=== PATIENT | female | born 1990 | race Caucasian/White ===

== ENCOUNTER 2017-04-13 10:07 | Day surgery (SDC) | payer BC ==
[2017-04-13] MEDS ORDERED: Bupivacaine 0.25% HCL 30 ML VIAL ONE (10:10)
[2017-04-13] MEDS ORDERED: Lidocaine 2% w/Epinephrine 1:200K 20 ML VIAL ONE (10:10)
[2017-04-13] MEDS ORDERED: CEFAZOLIN/Water 2 GM/20 ML SYRINGE ONE (10:35)
[2017-04-13] MEDS ORDERED: Fentanyl 250 MCG/5 ML VIAL ONE (10:49)
[2017-04-13 10:59] LABS: #Basophils 0.1 thou/uL (0.0-0.2); #Eosinphils 0.2 thou/uL (0.0-0.7); #Lymphocytes 2.1 thou/uL (1.20-3.40); #Monocytes 0.7 thou/uL (0.11-0.59); %Basophils 0.8 % (0.0-1.0); %Eosinophils 2.4 % (0.0-10.0); %Lymphocytes 26.2 % (21.0-51.0); %Monocytes 8.2 % (0.0-10.0); Hematocrit 35.2 % (36.0-47.0); Mean Platelet Volume 7.2 fL (7.4-10.4); Red Blood Cell (RBC) Count 3.65 mill/uL (4.20-5.40)
[2017-04-13] MEDS ORDERED: Midazolam HCl 2 mg/2 ml Vial ONE (11:20)
[2017-04-13] MEDS ORDERED: PHENYLEPHRINE-NS 100 MCG/ML 10 ML SYRINGE ONE (11:30)
[2017-04-13] MEDS ORDERED: Lidocaine 2% PF 10 ML AMP (For Epidural Use) ONE (11:30)
[2017-04-13] MEDS ORDERED: ePHEDrine/0.9% NaCl/PF SYRINGE 50 mg/10 ml ONE (11:30)
[2017-04-13] MEDS ORDERED: Succinylcholine Chloride 20 MG/ML 10 ml SYRINGE FS ONE (11:30)
[2017-04-13] MEDS ORDERED: Glycopyrrolate 0.2 MG/ML 5 ML SYRINGE ONE (11:30)
[2017-04-13] MEDS ORDERED: Ondansetron HCl/PF 4 MG/2 ML Vial ONE (11:30)
[2017-04-13] MEDS ORDERED: Propofol 200 MG/20 ML VIAL ONE ×2 (11:30)
[2017-04-13] MEDS ORDERED: Ketorolac Tromethamine 30 MG/ML VIAL ONE (11:30)
[2017-04-13 11:31] LABS: ALT (SGPT) 25 U/L (8-55); AST (SGOT) 21 U/L (5-34); Alkaline Phosphatase 64 U/L (40-150); Anion Gap 12 mmol/L (10-20); BUN (Urea Nitrogen) 8 mg/dL (7.0-18.7); Bilirubin, Total 0.4 mg/dL (0.2-1.2); Calc. Creatinine Clearance 0 mL/min (70-130); Calcium 9.8 mg/dL (7.8-10.44); Carbon Dioxide 23 mmol/L (22-29); Chloride 105 mmol/L (98-107); Estimated GFR-MDRD Greater than 90; Globulin 3.1 g/dL (2.4-3.5); Protein, Total 7.6 g/dL (6.0-8.3)
[2017-04-13] MEDS ORDERED: Meperidine HCl/PF 25 MG/ML VIAL ONE (12:49)
--- NOTE | 2017-04-14 11:33 | OP ---
DATE OF OPERATION: 04/13/2017 PREOPERATIVE DIAGNOSIS: Ruptured ectopic . POSTOPERATIVE DIAGNOSES: Ruptured ectopic , endometriosis. PROCEDURE: Laparoscopic right salpingectomy. ANESTHESIA: General endotracheal. ATTENDING SURGEON: Tanvi Mckeon M.D. PIN INSERTER SURGEON: None. ESTIMATED BLOOD LOSS: 10 mL. URINE OUTPUT: 150 mL of clear urine. INTRAVENOUS FLUIDS: One liter of crystalloid. COMPLICATIONS: None. DRAINS: None. PATHOLOGY: Right fallopian tube and ectopic . FINDINGS: Approximately 200 mL of hemoperitoneum upon entry into the abdomen, there was a ruptured and actively bleeding right fallopian tube with mass in situ. There were scattered superficial red implants on the pelvic peritoneum including the right uterosacral ligament, the left pelvic side wal l that were consistent with endometriosis. The uterus was normal appearing as well as the left fall opian tube and bilateral ovaries. The upper abdominal survey was normal as well. The appendix was normal appearing. OPERATIVE TECHNIQUE: The patient was taken to the operating room where general anesthesia was obtai kalia without difficulty. The patient was prepped and draped in sterile fashion in the dorsal lithoto my position. A speculum was placed in the vagina and the single tooth Hulka manipulator was placed in the uterus. The speculum was removed. The legs were placed in low lithotomy. Attention was tur kalia to the abdomen and mixture of 2% lidocaine with epinephrine and 0.25% Marcaine plain, half and h mcfp was infiltrated into the umbilicus and a 5 mm skin incision was made in the umbilicus. The Jolly ss needle was passed into the abdomen noting an opening pressure of 3 mmHg. Pneumoperitoneum was ob tained without difficulty. The Veress needle was removed. The 5 mm trocar and camera were passed i nto the abdomen confirming placement and steep Trendelenburg was obtained. Right and left lower donna drant ports were placed. The right lower quadrant was placed after infiltrating with the anesthetic mixture as above that was an 11 mm port. The left lower quadrant plate was placed after infiltrati ng with the mixture of anesthetic that was a 5 mm port under direct visualization. The right fallop babar tube was manipulated and the hemoperitoneum was suctioned for improved visualization. This was elevated with the grasper and the LigaSure was used to cauterize the mesosalpinx sequentially huggin g the fallopian tube mass and ensuring no occult damage to the ovary. This was sequentially cauteri zed and transected until the uterine cornua was met and the mass was completely resected clamping ac ross the fallopian tube, cauterizing and transecting and the mass was then freed from the patient. Additional fibers from the fimbriated end of the fallopian tube was then removed to ensure complete removal of any products of conception and this was performed with the LigaSure pulling traction with a blunt grasper. Excellent hemostasis was noted at the surgical site and the hemoperitoneum was en sured to completely be suctioned out of the patient including putting the patient in reverse Trendel enburg and copiously suctioning and irrigating this away. The bag was then placed through the 11 mm port and deployed open. This specimen was placed into the bag completely and the bag was then scott kenneth out of the abdomen easily using a Terese to stretch tension on the fascial incision. At that jhony e, hemostasis was once again noted and the Kale-Sylvester closure set was used to place a single st itch of 0 Vicryl to the 11 mm port under direct visualization. All instruments were then removed fr om the abdomen and the pneumoperitoneum was released. The skin was closed with 4-0 Monocryl in subc uticular fashion and Dermabond was applied. The manipulator was removed out of the vagina and hemos tasis was noted at the tenaculum site. The patient tolerated the procedure well. Sponge and needle counts were correct x2. The patient was taken to recovery room in stable condition. The patient r eceived Ancef 2 grams prior to the procedure.
== END 2017-04-13 14:41 | disposition home or self-care (01) ==
LOC: SDC 10:07
PROVIDERS: ATTEND Student in an Organized Health Care Education/Training Program
PROC: 0UT54ZZ Resection of Right Fallopian Tube, Percutaneous Endoscopic Approach (ICD-10-PCS; principal; 2017-04-13)
PROC: 10T24ZZ Resection of Products of Conception, Ectopic, Percutaneous Endoscopic Approach (ICD-10-PCS; principal; 2017-04-13)
DX: O00.101 Right tubal pregnancy without intrauterine pregnancy (principal); N80.0 Endometriosis of uterus; F17.210 Nicotine dependence, cigarettes, uncomplicated; Z98.890 Other specified postprocedural states
CPT/HCPCS: 36415; 80053; 84702; 85025; 86850; 86900; 86901; 88305; 96374; J1885; J2001; J2175; J2250; J2405; J2704; J3010; S0020

== ENCOUNTER 2017-07-03 18:54 | Emergency (ER) | payer BC ==
[2017-07-03 19:37] LABS: #Basophils 0.1 thou/uL (0.0-0.2); #Eosinphils 0.2 thou/uL (0.0-0.7); #Lymphocytes 2.7 thou/uL (1.20-3.40); #Monocytes 0.6 thou/uL (0.11-0.59); #Neutrophils 6.1 thou/uL (1.40-6.50); %Lymphocytes 27.7 % (21.0-51.0); %Neutrophils 63.2 % (42.0-75.0); Hemoglobin 12.4 g/dL (12.0-16.0); Mean Corpuscular HGB CONC 32.9 g/dL (32.0-36.0); Mean Corpuscular Hemoglobin 30.7 pg (27.0-31.0); Mean Corpuscular Volume 93.3 fl (81.0-99.0); Mean Platelet Volume 7.6 fL (7.4-10.4); Platelet Count 268 thou/uL (130-400); RBC Distribution Width 11.4 % (11.5-14.5); Red Blood Cell (RBC) Count 4.04 mill/uL (4.20-5.40); White Blood Cell (WBC) Count 9.7 thou/uL (4.8-10.8)
--- NOTE | 2017-07-03 21:30 | ULT ---
PELVIC ULTRASOUND: 07/03/17 Endovaginal ultrasound of the pelvis performed. INDICATION: Vaginal bleeding. There is an intrauterine . heart rate recorded at 165 beats per minute. A pole h as crown-rump length indicating an 8 week, 0 day gestation. Yolk sac is identified. The gestational s ac appears unremarkable. There is a hypoechoic area seen near the internal os which could potentially represent a subchorionic hemorrhage. This is measured at approximately 1 to 2 cm. The maternal ovaries are identified and floresita ear unremarkable. The right ovary is not well delineated and vascular flow to the right ovary cannot be confirmed with color doppler. Color doppler with spectral analysis does show flow to the left ovar y. IMPRESSION: Viable intrauterine with gestational age by crown-rump length indicating 8 week, 0 day gest ation. There is question of a subchorionic hemorrhage. Followup is recommended. POS: SUSAN
[2017-07-03 22:08] LABS: Bilirubin Negative (Negative); Blood, Urine Trace (Negative); Clarity CLEAR (Clear); Glucose, Urine (Dipstick) 100 mg/dL (Negative); Leukocyte Negative (Negative); Nitrite Negative (Negative); Protein, Urine (Dipstick) Negative (Neg-Trace); Specific Gravity, Urine 1.024 (1.002-1.036); Urobilinogen 0.2 mg/dL (0.2-1.0)
[2017-07-03 22:09] LABS: Bacteria/HPF None Seen HPF (None Seen); Hyaline Casts/LPF 0-3 HYALINE CAST LPF (0-3 Hyaline); Pathc Cast-AUWi Flag 0.67 (0-2.49); Squamous Epithelial 0-3 HPF (0-3); WBC/HPF 0-3 HPF (0-3)
== END 2017-07-03 22:51 | disposition home or self-care (01) ==
LOC: ERS 18:54
DX: O20.0 Threatened abortion (principal); O99.331 Smoking (tobacco) complicating pregnancy, first trimester; F17.210 Nicotine dependence, cigarettes, uncomplicated; Z79.899 Other long term (current) drug therapy; Z3A.01 Less than 8 weeks gestation of pregnancy
CPT/HCPCS: 36415; 36416; 76856; 81003; 81015; 84702; 85025; 86900; 86901; 87086; 88305; 99406

== ENCOUNTER 2019-01-25 05:30 | Inpatient (IN) | payer OTHER ==
[2019-01-25 11:42] VITALS: BMI 29.9
[2019-01-25] MEDS ORDERED: Lactated Ringer's 1,000 ML IV SCH (11:46)
[2019-01-25] MEDS ORDERED: NS w/ Oxytocin 10 units 500 ML IV SCH (11:46)
[2019-01-25] MEDS ORDERED: Carboprost 250 MCG/ML AMP IM PRN (11:46)
[2019-01-25] MEDS ORDERED: Acetaminophen 500 MG TAB PO PRN (11:46)
[2019-01-25] MEDS ORDERED: Ondansetron PF 4 MG/2 ML Vial IVP PRN ×2 (11:46→16:27)
[2019-01-25] MEDS ORDERED: Methylergonovine 0.2 MG/ML VIAL IM PRN (11:46)
[2019-01-25] MEDS ORDERED: Promethazine HCl 25 MG/ML VIAL IM PRN (11:46)
[2019-01-25] MEDS ORDERED: hydrALAZINE 20 MG/ML VIAL SLOW IVP PRN ×2 (11:46→16:27)
[2019-01-25] MEDS ORDERED: Butorphanol Tartrate 1 MG/ML VIAL SLOW IVP PRN (11:46)
[2019-01-25] MEDS ORDERED: Misoprostol 200 MCG TAB PR PRN (11:46)
[2019-01-25] MEDS ORDERED: Diphenoxylate HCl/Atropine Tablet PO PRN (11:46)
[2019-01-25] MEDS ORDERED: Lidocaine 1% (PF) 30 ML VIAL SC PRN (11:46)
[2019-01-25] MEDS ORDERED: HYDROcodone/Acetaminophen 5/325 mg Tablet PO PRN ×3 (11:46→16:27)
[2019-01-25] MEDS ORDERED: Ibuprofen 800 MG TAB PO PRN (11:46)
[2019-01-25] MEDS ORDERED: NS / Oxytocin 40 units/1000ml 1,000 ML IV PRN (11:46)
--- NOTE | 2019-01-25 12:07 | PDOC.LDHP ---
Labor and Delivery H&P Chief complaint: scheduled induction HPI: 28yo A1 here for elective IOL, pt is a tolac, prior CS x 1 first for mono-di twins with IUGR, second . Some ctx. No VB LOF. Good FM Current gestational age (weeks): 39 Due date: 01/27/19 Dating criteria: second trimester ultrasound Grav: 4 Para: 3 OB History Details: Prior CS x 1 first for mono-di twins, IUGR, 32w Current complications: none Abnormal US findings: No Past Medical History: ADHD Current medications: pre- vitamins Previous surgical history: low tranverse CS, other (left salpingectomy) Allergies/Adverse Reactions: Allergies Allergy/AdvReac Type Severity Reaction Status Date / Time No Known Drug Allergies Allergy Verified 01/25/19 11:39 Social history: none - Physical Exam Vital signs reviewed and normal: yes General: NAD Heart: RRR Lungs: CTAB Abdomen: gravid Extremeties: no edema FHT: category 1 Donalds contractions every: 7min - Vaginal Exam cm dilated: 5 Effacement: 90% Station: -1 - OB Labs RH: positive Antibody Screen: negative HIV: negative RPR: negative HEPSAg: negative 1 hour GCT: negative GBS: negative Urine drug screen: positive Rubella: immune - Assessment L&D Assessment: elective induction at term - Plan Plan: admit to L&D, labor augmentation if indicated, informed consent obtained, anesthesia consult for pain management -: Pt understands risks of TOLAC including uterine rupture <1% with doubling of that risk if pitocin is used. Pt understands and wishes to proceed.
[2019-01-25 12:27] LABS: Hemoglobin 10.6 g/dL (12.0-16.0); Mean Corpuscular HGB CONC 32.7 g/dL (32.0-36.0); Mean Corpuscular Volume 79.6 fL (78.0-98.0); Mean Platelet Volume 8.9 fL (7.4-10.4); Platelet Count 290 thou/uL (130-400); RBC Distribution Width 14.7 % (11.5-14.5); Red Blood Cell (RBC) Count 4.09 mill/uL (4.20-5.40); White Blood Cell (WBC) Count 7.9 thou/uL (4.8-10.8)
[2019-01-25 13:06] LABS: HBSAg Index 0.34 S/CO (0-0.99); Hep B Surf Ag Non-Reactive S/CO (NonReactive); Syphilis Antibody Nonreactive (Nonreactive); Syphilis Antibody Index 0.04 S/CO (<1.00 Non-Reactive)
[2019-01-25] MEDS ORDERED: Fentanyl 4 mcg/Bup 0.1% Cadd 100 ML ONE (13:44)
--- NOTE | 2019-01-25 15:59 | PDOC.OPDEL ---
OB Operative/Delivery Note Delivery Dr/Surgeon: Linda Assist: n/a Pre-Delivery Diagnosis: elective induction Procedure/Post Delivery Dx: vaginal delivery after CS Weeks gestation: 39 Anesthesia: local - Findings A Sex: female - 1 min: 9 - 5 min: 9 - Additional Findings/Plan Placenta delivered: spontaneous Repaired Obstetrical Laceration: 2nd degree (repaired with 2-0 vicryl) Estimated blood loss: 75cc Compilations/Other Findings: body cord x 1 Post delivery plan: routine recovery
[2019-01-25] MEDS ORDERED: Lanolin Ointment 7 GM TUBE TOP PRN (16:27)
[2019-01-25] MEDS ORDERED: diphenhydrAMINE 25 MG CAP PO PRN (16:27)
[2019-01-25] MEDS ORDERED: NS / Oxytocin 40 units/1000ml 1,000 ML IV SCH (16:27)
[2019-01-25] MEDS ORDERED: Bisacodyl 10 MG SUPP PR PRN (16:27)
[2019-01-25] MEDS ORDERED: Adacel (T-DAP) 0.5 ML SYRINGE IM ONE (16:27)
[2019-01-25] MEDS ORDERED: Benzocaine-Menthol 82.5 ML CAN TOP PRN (16:27)
[2019-01-25] MEDS ORDERED: Milk Of Magnesia 30 ML UDCUP PO PRN (16:27)
[2019-01-25] MEDS ORDERED: Preparation H Ointment 28 GM TUBE PR PRN (16:27)
[2019-01-25] MEDS: Ferrous Sulfate 325 MG TAB PO SCH (21:05)
[2019-01-25] MEDS: Docusate Calcium (SURFAK) 240 MG CAP PO SCH (21:30)
[2019-01-25] MEDS: Ibuprofen 800 MG TAB PO SCH (22:23)
[2019-01-26] MEDS: Ibuprofen 800 MG TAB PO SCH ×2 (05:41→13:51)
[2019-01-26] MEDS: Ferrous Sulfate 325 MG TAB PO SCH ×2 (09:00→16:18)
[2019-01-26] MEDS ORDERED: Prenatal Vitamin 1 TAB PO SCH (09:00)
[2019-01-26] MEDS: Docusate Calcium (SURFAK) 240 MG CAP PO SCH (09:43)
[2019-01-26 16:11] VITALS: BP 149/79; TEMP 98.1
--- NOTE | 2019-01-26 16:43 | PDOC.PP ---
Post Progress Note Post Day #: 1 PO intake tolerated: yes Flatus: yes Ambulation: yes Vital Signs (12 hours) Temp Pulse Resp BP BP Pulse Ox 01/26/19 15:16 98.1 F 75 12 149/79 H 97 01/26/19 12:02 98.3 F 73 20 134/76 01/26/19 08:40 97 01/26/19 08:22 98.2 F 63 20 127/73 97 01/26/19 05:40 98.8 F 66 18 126/59 L Weight Weight 180 lb - Physical Examination General: NAD Cardiovascular: RRR Respiratory: non-labored breathing Abdominal: no distention, appropriately TTP Fundus firm & at: umb Extremities: negative homans (B) Skin: no rash Neurological: no gross focal deficits Psychiatric: normal affect Result Diagrams: 01/25/19 12:16 Additional Labs: Post Labs Blood Type O POSITIVE 01/25/19 12:16 Hep Bs Antigen Non-Reactive S/CO (NonReactive) 01/25/19 12:16 - Assessment/Plan 28yo s/p PPD1 VSSAF Doing well lochia appropriate, pain controlled. Rh pos RImm DC home FU 6wk
== END 2019-01-26 17:20 | disposition home or self-care (01) | DRG 807 ==
LOC: L&D 11:12 → 3SW 21:12
PROVIDERS: ADMIT Student in an Organized Health Care Education/Training Program; ATTEND Student in an Organized Health Care Education/Training Program
PROC: 10E0XZZ Delivery of Products of Conception, External Approach (ICD-10-PCS; principal; 2019-01-25)
PROC: 0KQM0ZZ Repair Perineum Muscle, Open Approach (ICD-10-PCS; 2019-01-25)
PROC: 3E033VJ Introduction of Other Hormone into Peripheral Vein, Percutaneous Approach (ICD-10-PCS; 2019-01-25)
PROC: 10907ZC Drainage of Amniotic Fluid, Therapeutic from Products of Conception, Via Natural or Artificial Opening (ICD-10-PCS; 2019-01-25)
DX: O34.211 Maternal care for low transverse scar from previous cesarean delivery (principal); Z37.0 Single live birth; O62.3 Precipitate labor; O69.81X0 Labor and delivery complicated by cord around neck, without compression, not applicable or unspecified; O70.1 Second degree perineal laceration during delivery; Z3A.39 39 weeks gestation of pregnancy
CPT/HCPCS: 36415; 85027; 86780; 86850; 86900; 86901; 87340; 90715; J2001

== ENCOUNTER 2019-07-11 06:15 | Emergency (ER) | payer OTHER, SELFPAY ==
[2019-07-11] MEDS ORDERED: Famotidine 20 MG TAB ONE (06:45)
[2019-07-11] MEDS ORDERED: Ondansetron ODT 8 MG TAB ONE (06:45)
[2019-07-11] MEDS ORDERED: predniSONE 20 MG TAB ONE (06:45)
[2019-07-11] MEDS ORDERED: diphenhydrAMINE 25 MG CAP ONE (06:45)
== END 2019-07-11 07:01 | disposition home or self-care (01) ==
LOC: ERS 06:15
DX: L50.9 Urticaria, unspecified (principal); F17.210 Nicotine dependence, cigarettes, uncomplicated
CPT/HCPCS: 99283; J7512; Q0163

== ENCOUNTER 2019-07-13 15:56 | Observation (INO) | payer OTHER ==
[2019-07-13 16:52] LABS: Bilirubin 1+ (Negative); Blood, Urine Negative (Negative); Clarity Clear (Clear); Glucose, Urine (Dipstick) Normal (Negative); Leukocyte Negative Leu/uL (Negative); Nitrite Negative (Negative); Protein, Urine (Dipstick) Negative (Neg-Trace); Urobilinogen Normal mg/dL (Less than 2)
[2019-07-13 17:01] LABS: #Lymphocytes 1.7 thou/uL (1.20-3.40); #Monocytes 0.6 thou/uL (0.11-0.59); #Neutrophils 7.2 thou/uL (1.40-6.50); %Basophils 0.4 % (0.0-1.0); %Eosinophils 0.1 % (0.0-10.0); %Lymphocytes 18.1 % (21.0-51.0); %Monocytes 6.3 % (0.0-10.0); Hemoglobin 13.4 g/dL (12.0-16.0); Mean Corpuscular HGB CONC 30.8 g/dL (32.0-36.0); Mean Platelet Volume 7.8 fL (7.4-10.4); Platelet Count 328 thou/uL (130-400); RBC Distribution Width 12.8 % (11.5-14.5); Red Blood Cell (RBC) Count 4.76 mill/uL (4.20-5.40); White Blood Cell (WBC) Count 9.5 thou/uL (4.8-10.8)
[2019-07-13 17:14] LABS: Pregnancy Test - Urine (BHCG) Negative (Negative); Pregu Control Background? CLEAR/WHITE (CLR/WHITE); Pregu Control Bar Appear? YES (CONTROL BAR); Specific Gravity 1.008 (1.002-1.036)
[2019-07-13 17:22] LABS: ALT (SGPT) 1507 U/L (8-55); AST (SGOT) 629 U/L (5-34); Albumin 4.5 g/dL (3.5-5.0); Alkaline Phosphatase 217 U/L (40-110); Anion Gap 11 mmol/L (10-20); BUN (Urea Nitrogen) 8 mg/dL (7.0-18.7); Bilirubin, Total 4.1 mg/dL (0.2-1.2); Calc. Creatinine Clearance 0 mL/min (70-130); Calcium 9.4 mg/dL (7.8-10.44); Carbon Dioxide 27 mmol/L (22-29); Chloride 104 mmol/L (98-107); Estimated GFR-MDRD Greater than 90; Globulin 2.9 g/dL (2.4-3.5); Glucose 123 mg/dL (70-105); Lipase 45 U/L (8-78); Potassium 4.1 mmol/L (3.5-5.1); Protein, Total 7.4 g/dL (6.0-8.3); Sodium 138 mmol/L (136-145)
--- NOTE | 2019-07-13 17:36 | ULT ---
RIGHT UPPER QUADRANT ULTRASOUND: 07/13/19 HISTORY: Right upper quadrant pain. Real time imaging of the right upper quadrant shows some small faintly shadowing echogenic foci withi n the gallbladder lumen compatible with small stones. The technologist described a negative ultrasoun d Mckinney's sign. The common duct is slightly dilated. Measures in the 8 to 9 mm range. A ductal calcu marlene is not definitely appreciated. The visualized liver parenchymal shows no focal findings. The panc reas and right kidney are normal in appearance. IMPRESSION: Multiple cholelithiasis with a slight dilated common bile duct. POS: RICHARD
[2019-07-13] MEDS ORDERED: Morphine 4 MG/ML VIAL ONE (19:06)
[2019-07-13] MEDS: Sodium Chloride 0.9% 1,000 ML IV SCH (19:59)
[2019-07-13 20:04] VITALS: BMI 29.9
[2019-07-14] MEDS: Sodium Chloride 0.9% 1,000 ML IV SCH (03:11)
[2019-07-14] MEDS ORDERED: Morphine 4 MG/ML VIAL SLOW IVP PRN ×2 (04:58→12:10)
[2019-07-14] MEDS: Morphine 2 MG/ML SYRINGE SLOW IVP PRN ×2 (05:04→15:53)
[2019-07-14 05:24] LABS: #Basophils 0.1 thou/uL (0.0-0.2); #Eosinphils 0.1 thou/uL (0.0-0.7); #Lymphocytes 3.2 thou/uL (1.20-3.40); #Monocytes 0.7 thou/uL (0.11-0.59); #Neutrophils 2.8 thou/uL (1.40-6.50); %Basophils 1.1 % (0.0-1.0); %Eosinophils 1.9 % (0.0-10.0); %Lymphocytes 46.4 % (21.0-51.0); %Monocytes 9.7 % (0.0-10.0); %Neutrophils 40.9 % (42.0-75.0); Hemoglobin 11.8 g/dL (12.0-16.0); Mean Corpuscular HGB CONC 32.3 g/dL (32.0-36.0); Mean Corpuscular Hemoglobin 29.2 pg (27.0-31.0); Mean Corpuscular Volume 90.7 fL (78.0-98.0); Platelet Count 286 thou/uL (130-400); RBC Distribution Width 12.9 % (11.5-14.5); Red Blood Cell (RBC) Count 4.05 mill/uL (4.20-5.40); White Blood Cell (WBC) Count 6.9 thou/uL (4.8-10.8)
[2019-07-14 06:40] LABS: Albumin 3.6 g/dL (3.5-5.0)
[2019-07-14 06:41] LABS: Chloride 109 mmol/L (98-107); Potassium 3.4 mmol/L (3.5-5.1); Sodium 139 mmol/L (136-145)
[2019-07-14 06:42] LABS: Globulin 2.3 g/dL (2.4-3.5); Glucose 98 mg/dL (70-105); Protein, Total 5.9 g/dL (6.0-8.3)
[2019-07-14 06:44] LABS: Anion Gap 8 mmol/L (10-20); Bilirubin, Total 2.6 mg/dL (0.2-1.2); Carbon Dioxide 25 mmol/L (22-29)
[2019-07-14 06:45] LABS: Alkaline Phosphatase 191 U/L (40-110); Calc. Creatinine Clearance 150 mL/min (70-130); Estimated GFR-MDRD Greater than 90
[2019-07-14 06:46] LABS: BUN (Urea Nitrogen) 7 mg/dL (7.0-18.7)
[2019-07-14 06:47] LABS: AST (SGOT) 363 U/L (5-34)
[2019-07-14 06:48] LABS: ALT (SGPT) 1119 U/L (8-55); Lipase 47 U/L (8-78)
[2019-07-14 07:00] LABS: Calcium 7.9 mg/dL (7.8-10.44)
[2019-07-14] MEDS ORDERED: CEFAZOLIN 2 GM in Premix Bag 1 BAG IVPB SCH (08:15)
--- NOTE | 2019-07-14 09:15 | HP ---
CHIEF COMPLAINT: Mid epigastric pain. HISTORY OF PRESENT ILLNESS: The patient is a 29-year-old female with a 1-year history of intermittent epigastric pain radiating to back. Over the last month, it has become extremely frequent, almost every other day and much worse over the last 24 hours. This was associated with nausea and vomiting, dark urine. She has been n.p.o. since midnight. PAST MEDICAL HISTORY: Otherwise, healthy. PAST SURGICAL HISTORY: She has had an ectopic and a section. MEDICATIONS: No medications. ALLERGIES: NO KNOWN DRUG ALLERGIES. SOCIAL HISTORY: She is . 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 Smokes 1 pack every 3 days. Rare alcohol. FAMILY HISTORY: Gallstones. PHYSICAL EXAMINATION: VITAL SIGNS: Temperature 98, pulse 59, and blood pressure 104/68. GENERAL: She is awake, alert. She says her pain is completely gone now. She is in no apparent distress. HEENT: There is some mild jaundice. LUNGS: Clear. HEART: Regular rate and rhythm. ABDOMEN: Soft. Very minimal tenderness in the midepigastrium. EXTREMITIES: Unremarkable. LABORATORY DATA: Her white count is 6.9, H and H of 11 and 36, and platelet count 286. Electrolytes; her bilirubin was 4, now it is down to 2.6; AST down from 600 to 300; ALT down from 1500 to 1100; and alkaline phosphatase down from 217 to 191. Lipase is normal. IMAGING DATA: Her ultrasound showed multiple cholelithiasis with an enlarged common bile duct at about 8 to 9 mm. ASSESSMENT: Severe biliary colic with possible choledocholithiasis, possibly has passed a stone. PLAN: I have discussed options of ERCPs first, then laparoscopic cholecystectomy versus laparoscopic cholecystectomy with ERCP. We will plan on doing both procedures, but I think we are leaning toward laparoscopic cholecystectomy with cholangiogram. If positive, then ERCP. She understands the risk and benefits to include bleeding, infection, injury to bowel, injury to bile duct, need to open and gives informed consent. Job ID: [id number]
[2019-07-14] MEDS ORDERED: ePHEDrine/0.9% NaCl/PF SYRINGE 50 mg/10 ml ONE (09:22)
[2019-07-14] MEDS ORDERED: Glycopyrrolate 0.2 MG/ML 5 ML SYRINGE ONE ×2 (09:22)
[2019-07-14] MEDS ORDERED: Ondansetron PF 4 MG/2 ML Vial ONE (09:22)
[2019-07-14] MEDS ORDERED: PROPOFOL 200 MG/20 ML VIAL ONE (09:22)
[2019-07-14] MEDS ORDERED: Rocuronium Bromide 10 MG/ML (10ML VIAL) ONE (09:22)
[2019-07-14] MEDS ORDERED: Dexamethasone 20 MG/5 ML VIAL ONE (09:22)
[2019-07-14] MEDS ORDERED: Lidocaine 1% PF 5 ML VIAL ONE (09:22)
[2019-07-14] MEDS ORDERED: Midazolam HCl 2 mg/2 ml Vial ONE (09:56)
[2019-07-14] MEDS ORDERED: Fentanyl 100 MCG/2 ML VIAL ONE ×4 (10:47→13:28)
[2019-07-14] MEDS ORDERED: HYDROmorphone 0.5 MG/0.5 ML SYRINGE ONE (10:47)
[2019-07-14] MEDS ORDERED: Lidocaine 1% w/Epinephrine 1:100K 20 ML VIAL ONE (10:52)
[2019-07-14] MEDS ORDERED: Bupivacaine 0.25% HCL 30 ML VIAL ONE (10:52)
[2019-07-14] MEDS ORDERED: Iothalamate Meglumine 60% 50 ML VIAL FS ONE ×2 (10:52→14:06)
[2019-07-14] MEDS ORDERED: Ondansetron PF 4 MG/2 ML Vial IVP PRN (12:10)
[2019-07-14] MEDS ORDERED: hydrALAZINE 20 MG/ML VIAL SLOW IVP PRN (12:10)
[2019-07-14] MEDS ORDERED: Dextrose 5% in Water 1,000 ML IV PRN (12:10)
[2019-07-14] MEDS ORDERED: Promethazine HCl 25 MG/ML VIAL IM PRN (12:10)
[2019-07-14] MEDS ORDERED: Calcium Carbonate 500 MG ChewTAB PO PRN (12:10)
[2019-07-14] MEDS ORDERED: Morphine 2 MG/ML SYRINGE SLOW IVP PRN (12:10)
[2019-07-14] MEDS ORDERED: Dextrose 50% Abboject 50 ML SYRINGE SLOW IVP PRN (12:10)
[2019-07-14] MEDS ORDERED: HYDROcodone/Acetaminophen 10/325 mg Tablet PO PRN ×2 (12:10)
[2019-07-14] MEDS ORDERED: Mag-Al 1200 mg/1200 mg/30 ML UDCUP PO PRN (12:10)
[2019-07-14] MEDS ORDERED: D5 1/2 NS w/20 mEq KCL 1,000 ML IV SCH (12:15)
--- NOTE | 2019-07-14 12:24 | RAD ---
OPERATIVE CHOLANGIOGRAM: Date: 07/14/2019 HISTORY: Intraoperative film. FINDINGS: Single film shows filling of a nondilated common bile duct. Ampullar region is not well visualized. T here is emptying into the duodenum. IMPRESSION: Essentially unremarkable operative cholangiogram. The ampullary region of the duct is not well visual ized. POS: SUSAN
[2019-07-14] MEDS ORDERED: Promethazine HCl 25 MG/ML VIAL ONE (13:30)
--- NOTE | 2019-07-14 13:56 | RAD ---
ERCP: DATE: 07/14/2019 HISTORY: Gallstones with a slightly dilated common bile duct noted. FINDINGS: A series of films show filling of a nondilated common bile duct. There does appear to be a filling de fect seen on two of these images in the distal common duct. This could be an air bubble versus a smal l stone. IMPRESSION: Questionable air bubble versus small stone. POS: SUSAN
[2019-07-14] MEDS ORDERED: Indomethacin 50 MG SUPP ONE (14:06)
--- NOTE | 2019-07-14 14:45 | OP ---
DATE OF PROCEDURE: 07/14/2019 PREOPERATIVE DIAGNOSIS: Acute cholecystitis with elevated liver function. PROCEDURE PERFORMED: Laparoscopic cholecystectomy with intraoperative cholangiogram. INDICATIONS: A 29-year-old female, who has been having episodic right upper quadrant pain, much worse over the last couple of days. She has had dark urine. Ultrasound shows dilated common duct. Her LFTs are elevated. FINDINGS: Single stone in the common bile duct. There was edema of the gallbladder consistent with acute cholecystitis. DESCRIPTION OF PROCEDURE: After informed consent was obtained, the patient was taken to the operating room, given general endotracheal anesthesia, placed in supine position. Abdomen was prepped and draped in usual fashion. Local anesthesia was infiltrated subcutaneously and deep and a subumbilical incision was performed. Subcu divided sharply. The fascia was grasped and 2 stay sutures were placed in each side of midline. Midline incised. Digital palpation revealed no local adhesions. A blunt 12-mm trocar inserted. Pneumoperitoneum was created to a pressure of 15 mmHg. A 0-degree laparoscope was inserted under direct vision. Three 5-mm ports were placed subcostally. The gallbladder was grasped and advanced superiorly. Peritoneum lysed distally to reveal a dilated cystic duct and cystic artery. A clip was placed at the base of the gallbladder and incision was made in the cystic duct. An Arrow cholangiocatheter was inserted. Intraoperative cholangiogram showed free flow in the duodenum. Good intrahepatic ducts, but there was a filling defect in the distal common bile duct. The cystic duct had to be doubly ligated with endo-loops due to its size. Then, the cystic artery triply ligated with hemoclips and divided. The gallbladder removed from its fossa utilizing electrocautery, removed from the abdomen in an endosac. Hemostasis was assured. Trocars and retractors were removed. The fascia was closed with interrupted 0 Vicryl suture. The skin was closed with interrupted 4-0 Rapide. Dermabond applied. The patient tolerated the procedure well, transferred to Recovery in good condition. Sponge and needle count verified correct x2. Job ID: [id number]
--- NOTE | 2019-07-14 15:27 | OP ---
DATE OF PROCEDURE: 07/14/2019 PROCEDURES PERFORMED: 1. Endoscopic retrograde cholangiopancreatography with sphincterotomy. 2. Removal of common bile duct stone. PREPROCEDURE DIAGNOSIS: Abnormal intraoperative cholangiogram at laparoscopic cholecystectomy just prior to this procedure. ANESTHESIA: General endotracheal anesthesia. Indocin suppositories were given prophylactically for pancreatitis. POSTPROCEDURE DIAGNOSIS: 5 mm to 7 mm yellow stone was removed from the common bile duct a cholangiogram was clear after this. RECOMMENDATIONS: Advance diet as tolerated. If has no pain and tolerating diet, can go home this evening after 5. PROCEDURE IN DETAIL: After the patient was informed of the risks, benefits, and possible complications of endoscopy including perforation, bleeding, reaction to medication, aspiration, pancreatitis, informed consent was obtained. The patient was brought to endoscopy suite from the OR, where she had a positive intraoperative cholangiogram. She was transferred to fluoroscopy table. Once she was properly positioned, a bite block was placed inside the orifice. The endoscope was advanced into the esophagus, stomach, and second and third portions of duodenum. The ampulla was brought into view. Clear bile was noted to be emanating from it. Free cannulation was obtained with assistance of a guidewire. Cholangiogram revealed filling defect in the distal 3rd of the common bile duct. A 9 mm balloon was used then to advance above the stone. This was after sphincterotomy was performed over a guidewire. The balloon was inflated and the duct was swept, removing the stone. Occlusion cholangiogram x2 after this showed no further filling defects. The duct was swept 2 more times and no further stone or debris coming out of the duct and there was spontaneous drainage of contrast noted both visually and fluoroscopically. The stomach was then desufflated. The scope was removed. The patient was extubated, brought to recovery room in stable condition. Job ID: [id number]
--- NOTE | 2019-07-14 15:34 | CON ---
DATE OF CONSULTATION: 07/14/2019 HISTORY OF PRESENT ILLNESS: Ms. Johns is a 29-year-old female who I was asked to see with regard to possible choledocholithiasis. She has had about 4 months of intermittent right upper quadrant and epigastric pain. It is somewhat worse in the morning and sometimes after she eats, occasionally it is radiating around to her side back. This started shortly after delivery of her last child in January. In the last month or so, it has gotten much worse. She presented to the emergency room last night with severe epigastric pain and was noted to have gallstones and mildly dilated bile duct and elevated LFTs. She is going to Dr. West for cholecystectomy today and possible ERCP. PAST MEDICAL HISTORY: She has had ectopic with laparoscopy for that. She has had a . She also has had spontaneous vaginal delivery. Otherwise, she has been healthy. MEDICATIONS: None. ALLERGIES: NO KNOWN DRUG ALLERGIES. SOCIAL HISTORY: She is . 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 Smokes about a pack per day every 3-4 days. Rarely drinks alcohol. FAMILY HISTORY: Notable for multiple members with gallstones. She has no family history of colorectal cancer or liver disease. MEDICATIONS: Here: 1. Pepcid. 2. Lovenox. 3. Cefoxitin. 4. Hydrochlorothiazide. 5. Hydrocodone p.r.n. 6. Toradol p.r.n. 7. Morphine p.r.n. 8. D5 half-normal saline with KCl 20 mEq at 80 an hour. PHYSICAL EXAMINATION: VITAL SIGNS: Temperature 98, pulse 59, respirations 18, blood pressure of 104/64. GENERAL: The patient is in bed. Her is at the bedside. She is no distress. It is difficult for me to tell she is icteric or not in this lighting. NECK: Supple without nodes. LUNGS: Clear. HEART: Regular with no extra murmurs. ABDOMEN: Soft. Mild tenderness in the right upper quadrant. There is no rebound. There is no guarding. EXTREMITIES: No clubbing, cyanosis, or edema. LABORATORY STUDIES: White count 6.9, hemoglobin 11.8, platelet count 286. Comprehensive metabolic profile notable for sodium 139, BUN and creatinine 7 and 0.7. Bilirubin was 4.1 last night and 2.6 today, AST 629 to 362, ALT 1507 to 1119, alkaline phosphatase 172 to 191. Ultrasound showed multiple stones in the gallbladder and some dilation of the common bile duct. ASSESSMENT: 1. Symptomatic cholelithiasis with intermittent bouts of biliary colic. 2. Likely choledocholithiasis. PLAN: We will talk to Dr. West with regard to whether he wants to do a laparoscopic cholecystectomy and IOC first or having me proceed with ERCP 1st. It is likely she has retained stone. Timing will depend on what the OR schedule is and what Dr. West's preference is. Risks, benefits, and possible complications of the ERCP including perforation, bleeding, reaction to medication, and aspiration and pancreatitis were discussed the patient and her family and she wished to proceed. Job ID: [id number]
[2019-07-14] MEDS ORDERED: cefOXitin Sodium/Dextrose,Iso 2 GM in Premix Bag 1 BAG IVPB SCH (17:00)
[2019-07-14] MEDS ORDERED: Ketorolac Tromethamine 30 MG/ML VIAL IVP SCH (18:00)
[2019-07-14 20:06] VITALS: BP 114/72; TEMP 97.4
[2019-07-14] MEDS ORDERED: Famotidine 20 MG TAB PO SCH (21:00)
[2019-07-14] MEDS ORDERED: Famotidine/PF 20 mg/2ml Vial SLOW IVP SCH (21:00)
[2019-07-15] MEDS ORDERED: Enoxaparin Sodium 40 MG/0.4 ML SYRINGE SC SCH (09:00)
== END 2019-07-14 19:55 | disposition home or self-care (01) ==
LOC: ERS 15:56 → INTOOBSV 19:54 → SJJU 19:54
PROVIDERS: ADMIT Surgery; ATTEND Surgery
PROC: 0FT44ZZ Resection of Gallbladder, Percutaneous Endoscopic Approach (ICD-10-PCS; principal; 2019-07-14)
PROC: BF101ZZ Fluoroscopy of Bile Ducts using Low Osmolar Contrast (ICD-10-PCS; 2019-07-14)
PROC: 0FC98ZZ Extirpation of Matter from Common Bile Duct, Via Natural or Artificial Opening Endoscopic (ICD-10-PCS; 2019-07-14)
PROC: 0F798ZZ Dilation of Common Bile Duct, Via Natural or Artificial Opening Endoscopic (ICD-10-PCS; 2019-07-14)
DX: K80.66 Calculus of gallbladder and bile duct with acute and chronic cholecystitis without obstruction (principal); F17.210 Nicotine dependence, cigarettes, uncomplicated; Z79.52 Long term (current) use of systemic steroids; Z79.899 Other long term (current) drug therapy
CPT/HCPCS: 36415; 47532; 74330; 76705; 80053; 81003; 81025; 83690; 85025; 88304; 96374; 99283; C1769; J0690; J0694; J1100; J1170; J1885; J2001; J2250; J2270; J2405; J2550; J2704; J3010; J7512; Q0163; S0020